=== PATIENT | male | born 1950 | race American Indian/Alaskan Native ===

== ENCOUNTER 2017-02-28 10:44 | Outpatient (CLI) | payer BC ==
--- NOTE | 2017-02-28 12:54 | XRay Report ---
LEFT KNEE, 3 views: History: Primary osteoarthritis of left knee. Moderate osteoarthritic changes are identified in all 3 compartments. The medial compartment appears to be most affected. There is no evidence for fracture, bone lesion, osteochondral defect or large joint effusion. The soft tissues are unremarkable. IMPRESSION: Osteoarthritis.
== END 2017-02-28 10:45 | disposition home or self-care (01) ==
LOC: XRAY 10:44
PROVIDERS: ATTEND Internal Medicine
DX: M17.12 Unilateral primary osteoarthritis, left knee (principal)

== ENCOUNTER 2017-09-10 11:29 | Emergency (ER) | payer MEDICARE ==
[2017-09-10] MEDS ORDERED: TORADOL IM ONE (14:55)
--- NOTE | 2017-09-10 15:14 | Emergency Department Report ---
ED Back Pain/Injury HPI - General Chief Complaint: Extremity Injury, Lower Stated Complaint: RIGHT SIDE HIP PAIN Time Seen by Provider: 09/10/17 14:51 Source: patient Limitations: No Limitations - History of Present Illness Initial Comments: This is a 66-year-old male nontoxic, well nourished in appearance, no acute signs of distress presents to the ED with c/o of acute on chronic lower back pain. Patient stated that the past 2 days he was moving and developed this pain. Patient states has history of sciatica nerve pain which is similar symptoms as today. Patient states that pain radiates through to his right lower extremity. Patient denies any trauma. Denies any bladder or bowel instability. Patient denies any urinary symptoms. Denies any fever, chills, nausea, vomiting, headache, stiff neck, chest pain or shortness of breath. Patient denies any numbness or tingling. Denies any allergies. PMH includes diabetes. MD Complaint: back pain -: year(s) Similar Symptoms Previously: Yes Place: home Radiation: right leg Severity: mild Severity scale (0 -10): 8 Quality: aching Consistency: constant Improves With: immobilization, supine, sitting upright Worsens With: movement, walking Context: while lifting, turning/twisting Associated Symptoms: denies other symptoms. denies: confusion, weakness, chest pain, numbness, difficulty walking, cough, difficulty urinating, diaphoresis, incontinence, fever/chills, constipation, headaches, abdominal pain, loss of appetite, malaise, nausea/vomiting, rash, seizure, shortness of breath, syncope - Related Data Previous Rx's Medication Instructions Recorded Last Taken Type Cyclobenzaprine [Flexeril] 10 mg PO BID PRN #14 tablet 09/10/17 Unknown Rx Ibuprofen [Motrin] 600 mg PO Q8H PRN #30 tablet 09/10/17 Unknown Rx Allergies Allergy/AdvReac Type Severity Reaction Status Date / Time No Known Allergies Allergy Unverified 02/28/17 10:44 ED Review of Systems ROS: Stated complaint: RIGHT SIDE HIP PAIN Other details as noted in HPI Constitutional: denies: chills, fever Eyes: denies: eye pain, eye discharge, vision change ENT: denies: ear pain, throat pain Respiratory: denies: cough, shortness of breath, wheezing Cardiovascular: denies: chest pain, palpitations Endocrine: no symptoms reported Gastrointestinal: denies: abdominal pain, nausea, diarrhea Genitourinary: denies: urgency, dysuria Musculoskeletal: back pain. denies: joint swelling, arthralgia Skin: denies: rash, lesions Neurological: denies: headache, weakness, paresthesias Psychiatric: denies: anxiety, depression Hematological/Lymphatic: denies: easy bleeding, easy bruising ED Past Medical Hx - Past Medical History Hx Diabetes: Yes Additional medical history: sciatica - Surgical History Additional Surgical History: hernia repair - Social History Smoking Status: Current Every Day Smoker Substance Use Type: Alcohol - Medications Home Medications: Home Medications Medication Instructions Recorded Confirmed Last Taken Type Cyclobenzaprine [Flexeril] 10 mg PO BID PRN #14 tablet 09/10/17 Unknown Rx Ibuprofen [Motrin] 600 mg PO Q8H PRN #30 tablet 09/10/17 Unknown Rx ED Physical Exam - General Limitations: No Limitations General appearance: alert, in no apparent distress - Head Head exam: Present: atraumatic, normocephalic - Eye Eye exam: Present: normal appearance Pupils: Present: normal accommodation - ENT ENT exam: Present: normal exam, mucous membranes moist - Neck Neck exam: Present: normal inspection, full ROM. Absent: tenderness, meningismus, lymphadenopathy - Respiratory Respiratory exam: Present: normal lung sounds bilaterally. Absent: respiratory distress, wheezes, rales, rhonchi, stridor, chest wall tenderness, accessory muscle use, decreased breath sounds, prolonged expiratory - Cardiovascular Cardiovascular Exam: Present: regular rate, normal rhythm, normal heart sounds. Absent: bradycardia, tachycardia, irregular rhythm, systolic murmur, diastolic murmur, rubs, gallop - GI/Abdominal GI/Abdominal exam: Present: soft, normal bowel sounds. Absent: distended, tenderness, guarding, rebound, rigid, diminished bowel sounds - Rectal Rectal exam: Present: deferred - Extremities Exam Extremities exam: Present: normal inspection, full ROM, normal capillary refill. Absent: tenderness - Back Exam Back exam: Present: normal inspection, full ROM, paraspinal tenderness. Absent : tenderness, CVA tenderness (R), CVA tenderness (L), muscle spasm, vertebral tenderness, rash noted - Expanded Back Exam Expanded Back exam: Absent: saddle anesthesia Back exam: Negative Straight Leg Raising: Left, Right - Neurological Exam Neurological exam: Present: alert, oriented X3, normal gait - Psychiatric Psychiatric exam: Present: normal affect, normal mood - Skin Skin exam: Present: warm, dry, intact, normal color. Absent: rash ED Course Vital Signs 09/10/17 11:58 Temperature 99.1 F Pulse Rate 86 Respiratory 18 Rate Blood Pressure 162/88 O2 Sat by Pulse 99 Oximetry - Reevaluation(s) Reevaluation #1: 09/10/17 15:30 Patient is speaking in full sentences with no signs of distress noted. ED Medical Decision Making - Medical Decision Making This is a 66-year-old male that presents with low back strain. Patient is stable was examined by me. There is no spinal tenderness. There is no cauda equina syndrome during examination. No bladder or bowel instability. Patient received Toradol 60 mg IM in the ED which preceded his symptoms has resolved and subsided. Patient is discharged with muscle relaxant and Motrin. Patient was instructed not to operate any machinery while taking muscle relaxant as they cause her drowsiness. Patient was referred to Follow-up with a primary care doctor in 3-5 days or if symptoms worsen and continue return to emergency room as soon as possible. At time of discharge, the patient does not seem toxic or ill in appearance. No acute signs of distress noted. Patient agrees to discharge treatment plan of care. No further questions noted by the patient. This chart is dictated with using [employer] Program Critical care attestation.: If time is entered above; I have spent that time in minutes in the direct care of this critically ill patient, excluding procedure time. ED Disposition Clinical Impression: Low back strain Qualifiers: Encounter type: initial encounter Qualified Code(s): S39.012A - Strain of muscle, fascia and tendon of lower back, initial encounter Disposition: - TO HOME OR SELFCARE Is pt being admited?: No Does the pt Need Aspirin: No Condition: Stable Instructions: Low Back Strain (ED), Cyclobenzaprine (By mouth), Ibuprofen (By mouth) Additional Instructions: Follow-up with your primary care doctor in 3-5 days or if symptoms worsen such as bladder or bowel stability, chest pain, short of breath, numbness or tingling sensation in extremities, headache, dizziness, visual changes, nausea vomiting, or abdominal pain, return back to emergency room as was possible. Take ibuprofen and Flexeril as prescribed. Do not operate heavy machinery while taking Flexeril due to sedation Prescriptions: Cyclobenzaprine [Flexeril] 10 mg PO BID PRN #14 tablet PRN Reason: Muscle Spasm Ibuprofen [Motrin] 600 mg PO Q8H PRN #30 tablet PRN Reason: Pain Referrals: PRIMARY CARE, [Primary Care Provider] - 3-5 Days ROBERTA HARMAN MD [Staff Physician] - 3-[address] [facility] [Outside] - 3-5 Days [facility] [Outside] - 3-5 Days Forms: Work/School Release Form(ED)
[2017-09-10 16:08] VITALS: BP 160/82
== END 2017-09-10 16:06 | disposition home or self-care (01) ==
LOC: ED 11:29
DX: S39.012A Strain of muscle, fascia and tendon of lower back, initial encounter (principal); E11.9 Type 2 diabetes mellitus without complications; F17.200 Nicotine dependence, unspecified, uncomplicated; X50.9XXA Other and unspecified overexertion or strenuous movements or postures, initial encounter; Y93.89 Activity, other specified; Y92.89 Other specified places as the place of occurrence of the external cause; Y99.8 Other external cause status
CPT/HCPCS: 96372; 99282; J1885

== ENCOUNTER 2020-10-13 10:38 | Emergency (ER) | payer BC, MEDICARE ==
[2020-10-13] MEDS ORDERED: HYDROcodone/ACETAMINOPHEN 5-325 MG TAB PO ONE (11:39)
[2020-10-13 11:41] VITALS: BP 132/81
--- NOTE | 2020-10-13 11:45 | Emergency Department Report ---
ED Upper Extremity Inj HPI - General Chief Complaint: Extremity Injury, Upper Stated Complaint: RT WRIST POOS BROKEN Time Seen by Provider: 10/13/20 11:38 Source: patient Mode of arrival: Ambulatory Limitations: No Limitations - History of Present Illness Initial Comments: Patient is a 70-year-old male presents emergency room complaints of a right wrist injury that occurred earlier this morning. He states he was walking in his house and accidentally tripped on something and states that his hand bent underneath him which caused a right wrist injury. He denies ever injuring this wrist in the past. he denies any Numbness or weakness. Past medical history of diabetes. No allergies to medications. - Related Data Previous Rx's Medication Instructions Recorded Last Taken Type Cyclobenzaprine [Flexeril] 10 mg PO BID PRN #14 tablet 09/10/17 Unknown Rx Ibuprofen [Motrin] 600 mg PO Q8H PRN #30 tablet 09/10/17 Unknown Rx HYDROcodone/APAP 7.5-325 [[place] 1 each PO Q8HR PRN #12 tablet 10/13/20 Unknown Rx 7.5/325] Ibuprofen [Motrin 600 MG tab] 600 mg PO Q8H PRN #20 tablet 10/13/20 Unknown Rx Allergies Allergy/AdvReac Type Severity Reaction Status Date / Time No Known Allergies Allergy Unverified 02/28/17 10:44 ED Review of Systems ROS: Stated complaint: RT WRIST POOS BROKEN Other details as noted in HPI Comment: All other systems reviewed and negative ED Past Medical Hx - Past Medical History Previous Medical History?: Yes Hx Diabetes: Yes Additional medical history: sciatica - Surgical History Past Surgical History?: Yes Additional Surgical History: hernia repair - Social History Smoking Status: Current Every Day Smoker Substance Use Type: Alcohol - Medications Home Medications: Home Medications Medication Instructions Recorded Confirmed Last Taken Type Cyclobenzaprine [Flexeril] 10 mg PO BID PRN #14 tablet 09/10/17 Unknown Rx Ibuprofen [Motrin] 600 mg PO Q8H PRN #30 tablet 09/10/17 Unknown Rx HYDROcodone/APAP 7.5-325 [[place] 1 each PO Q8HR PRN #12 tablet 10/13/20 Unknown Rx 7.5/325] Ibuprofen [Motrin 600 MG tab] 600 mg PO Q8H PRN #20 tablet 10/13/20 Unknown Rx ED Physical Exam - General Limitations: No Limitations General appearance: alert, in no apparent distress - Head Head exam: Present: atraumatic, normocephalic - Eye Eye exam: Present: normal appearance - ENT ENT exam: Present: mucous membranes moist - Extremities Exam Extremities exam: Present: other (ttp to the right wrist bilaterally, there is a mild deformity present to the right wrist, decreased ROM secondary to pain, no ttp of the right hand/digits/elbow or shoulder, neurovascularly intact, skin is intact) - Neurological Exam Neurological exam: Present: alert, oriented X3 - Psychiatric Psychiatric exam: Present: normal affect, normal mood - Skin Skin exam: Present: warm, dry, intact ED Course Vital Signs 10/13/20 10/13/20 11:36 12:42 Temperature 98.6 F Pulse Rate 78 Respiratory 18 16 Rate Blood Pressure 132/81 O2 Sat by Pulse 98 Oximetry ED Medical Decision Making - Radiology Data Radiology results: report reviewed Ordering Physician: DAREK KONG Date of Service: 10/13/20 Procedure(s): XR wrist 3+V RT Accession Number(s): [id number] cc: DAREK KONG Fluoro Time In Minutes: RIGHT WRIST 3 VIEWS INDICATION: right wrist pain after fall. COMPARISON: None. IMPRESSION: A comminuted, impacted and mildly displaced fracture is identified in the distal radial metaphysis. There is no obvious intra-articular extension at the radiocarpal joint. The carpa l bones are intact. There is mild positive ulnar variance. Transverse fracture at the base of the ulnar styloid is also present. No significant joint pathology. There is diffuse soft tissue swelling. Signer Name: Reji Contreras Jr, MD Signed: 10/13/2020 12:24 PM Workstation Name: [id number] Transcribed By: TTR Dictated By: REJI CONTRERAS JR, MD Electronically Authenticated By: REJI CONTRERAS JR, MD Signed Date/Time: 10/13/20 122 DD/ 1223 TD/TT: - Medical Decision Making Patient is a 70-year-old male presents emergency room complaints of a right wrist injury that occurred earlier this morning. He states he was walking in his house and accidentally tripped on something and states that his hand bent underneath him which caused a right wrist injury. He denies ever injuring this wrist in the past. he denies any Numbness or weakness. Past medical history of diabetes. No allergies to medications. Vitals are stable. On exam:ttp to the right wrist bilaterally, there is a mild deformity present to the right wrist, decreased ROM secondary to pain, no ttp of the right hand/digits/elbow or shoulder, neurovascularly intact, skin is intact. XR right wrist: A comminuted, impacted and mildly displaced fracture is identified in the distal radial metaphysis. There is no obvious intra-articular extension at the radiocarpal joint. The carpal bones are intact. There is mild positive ulnar variance. Transverse fracture at the base of the ulnar styloid is also present. No significant joint pathology. There is diffuse soft tissue swelling. Discussed findings with Dr. Ольга Mora, ER attending who reviewed images and advised that patient can be placed in sugar tong and given outpatient orthopedic follow-up. Discussed all results with patient and answer questions. Patient placed in sugar tong splint by project development engineer remain neurovascular intact. Patient given prescription for pain medication. Advised patient Please take medication as prescribed as needed. Please follow-up with orthopedic doctor. Return to emergency room for any new or worsening symptoms. Critical care attestation.: If time is entered above; I have spent that time in minutes in the direct care of this critically ill patient, excluding procedure time. ED Disposition Clinical Impression: Distal radius fracture Qualifiers: Encounter type: initial encounter Fracture type: closed Fracture morphology: unspecified fracture morphology Laterality: right Qualified Code(s): S52.501A - Unspecified fracture of the lower end of right radius, initial encounter for closed fracture Ulnar fracture Qualifiers: Encounter type: initial encounter Ulna location: styloid process Fracture type: closed Fracture alignment: displaced Laterality: right Qualified Code(s): S52.611A - Displaced fracture of right ulna styloid process, initial encounter for closed fracture Disposition: 01 HOME / SELF CARE / HOMELESS Is pt being admited?: No Does the pt Need Aspirin: No Condition: Stable Instructions: Radial Fracture, Ulnar Fracture Additional Instructions: Please take medication as prescribed as needed. Please follow-up with orthopedic doctor. Return to emergency room for any new or worsening symptoms. Prescriptions: Ibuprofen [Motrin 600 MG tab] 600 mg PO Q8H PRN #20 tablet PRN Reason: Pain HYDROcodone/APAP 7.5-325 [[place] 7.5/325] 1 each PO Q8HR PRN #12 tablet PRN Reason: Pain Referrals: MONIKA SANFORD MD [Primary Care Provider] - 3-5 Days CHRISTY DIAZ MD [Staff Physician] - 3-5 Days [facility] [Provider Group] - 3-5 Days Forms: Work/School Release Form(ED) Time of Disposition: 12:45 Print Language: BRUNEIAN
--- NOTE | 2020-10-13 12:28 | XRay Report ---
RIGHT WRIST 3 VIEWS INDICATION: right wrist pain after fall. COMPARISON: None. IMPRESSION: A comminuted, impacted and mildly displaced fracture is identified in the distal radial metaphysis. There is no obvious intra-articular extension at the radiocarpal joint. The carpal bones are intact. There is mild positive ulnar variance. Transverse fracture at the base of the ulnar styl oid is also present. No significant joint pathology. There is diffuse soft tissue swelling. Signer Name: Reji Contreras Jr, MD Signed: 10/13/2020 12:24 PM Workstation Name: [id number]
== END 2020-10-13 13:57 | disposition home or self-care (01) ==
LOC: ED 10:38
DX: S52.501A Unspecified fracture of the lower end of right radius, initial encounter for closed fracture (principal); S52.201A Unspecified fracture of shaft of right ulna, initial encounter for closed fracture; E11.8 Type 2 diabetes mellitus with unspecified complications; M54.30 Sciatica, unspecified side; Z98.890 Other specified postprocedural states; F17.200 Nicotine dependence, unspecified, uncomplicated; W01.0XXA Fall on same level from slipping, tripping and stumbling without subsequent striking against object, initial encounter; Y93.89 Activity, other specified; Y92.89 Other specified places as the place of occurrence of the external cause; Y99.8 Other external cause status
CPT/HCPCS: 99283